=== PATIENT | female | born 1985 | race African-American/Black ===

== ENCOUNTER 2017-07-31 16:45 | Emergency (ER) | payer OTHER ==
[~2017-07-31] VITALS: Ht 154.9 cm; Wt 80.7 kg
[2017-07-31] MEDS ORDERED: ZOFRAN ODT4 MG PO (20:44)
[2017-07-31] MEDS ORDERED: VALIUM2 MG PO (20:44)
[2017-07-31] MEDS ORDERED: ANTIVERT25 MG PO (20:44)
[2017-07-31 21:14] VITALS: BP 119/67
== END 2017-07-31 21:17 | disposition home or self-care (01) ==
LOC: ER 16:45
DX: R42 Dizziness and giddiness (principal); R11.2 Nausea with vomiting, unspecified